=== PATIENT | female | born 1970 | race African-American/Black ===

== ENCOUNTER 2019-04-23 15:25 | Emergency (ER) | payer OTHER ==
[~2019-04-23] VITALS: Ht 167.6 cm; Wt 106.0 kg
[~2019-04-23 15:25] MED LIST: MOTRI
[2019-04-23 15:29] VITALS: BP 141/96
== END 2019-04-23 16:16 | disposition home or self-care (01) ==
LOC: EMS 15:26
DX: B37.3 Candidiasis of vulva and vagina (principal)

== ENCOUNTER 2020-10-05 09:12 | Emergency (ER) | payer OTHER ==
[~2020-10-05] VITALS: Ht 165.1 cm; Wt 118.6 kg
[2020-10-05] MEDS ORDERED: IBUP-1506 PO (09:22)
[2020-10-05] MEDS ORDERED: LIDOCAINE 1% 10 ML VIAL SQ ONE (10:15)
[2020-10-05] MEDS ORDERED: POVIDONE-IODINE 10% 15 ML SOLUTION UD TP ONE (10:15)
[2020-10-05] MEDS ORDERED: IBUPROFEN 800 MG TABLET PO ONE (10:15)
[2020-10-05 11:41] VITALS: BP 141/89
== END 2020-10-05 11:51 | disposition home or self-care (01) ==
LOC: EMS 09:18
DX: L03.012 Cellulitis of left finger (principal)
CPT/HCPCS: 10060; 99282; J3490